=== PATIENT | female | born 1985 | race Caucasian/White ===

== ENCOUNTER 2018-10-22 18:13 | Emergency (ER) | payer OTHER ==
[~2018-10-22] VITALS: Ht 172.7 cm; Wt 70.0 kg
[2018-10-22 18:25] VITALS: BP 130/80
--- NOTE | 2018-10-22 18:39 | NUR ---
PT COMPLIANT WITH LAB DRAW. OFFICERS PRESENT.
[2018-11-14] MEDS ORDERED: RANI-467 PO (11:23)
[2018-11-14] MEDS ORDERED: RISP1TAB3 PO (11:23)
[2018-11-14] MEDS ORDERED: OMEP20TA62 PO (11:23)
[2018-11-14] MEDS ORDERED: LEVE100020 PO (11:23)
[2018-11-18] MEDS ORDERED: ACID1TAB7 PO (11:02)
[2018-11-18] MEDS ORDERED: SULF-169 PO (11:02)
== END 2018-10-22 18:48 | disposition home or self-care (01) ==
LOC: ED 18:23
DX: Z77.21 Contact with and (suspected) exposure to potentially hazardous body fluids (principal)
CPT/HCPCS: 36415; 86705; 86706; 86803; 87340; 87806; 99283; G0475

== ENCOUNTER 2018-11-14 11:05 | Inpatient (IN) | payer OTHER, MEDICAID ==
[~2018-11-14] VITALS: Ht 167.6 cm; Wt 98.6 kg
[2018-11-18 12:58] VITALS: BP 108/71
== END 2018-11-18 16:51 | DRG 871 ==
LOC: ED 12:57 → EDIP 12:58 → ED 13:35 → 3NE 14:04
PROVIDERS: ADMIT Internal Medicine; ATTEND Internal Medicine
PROC: 0T9B70Z Drainage of Bladder with Drainage Device, Via Natural or Artificial Opening (ICD-10-PCS; principal; 2018-11-14)
DX: A41.9 Sepsis, unspecified organism (principal); G93.41 Metabolic encephalopathy; N39.0 Urinary tract infection, site not specified; B96.20 Unspecified Escherichia coli [E. coli] as the cause of diseases classified elsewhere; B96.89 Other specified bacterial agents as the cause of diseases classified elsewhere; E66.9 Obesity, unspecified; E87.6 Hypokalemia; F29 Unspecified psychosis not due to a substance or known physiological condition; Z87.820 Personal history of traumatic brain injury; R73.9 Hyperglycemia, unspecified; Z68.35 Body mass index [BMI] 35.0-35.9, adult
CPT/HCPCS: 36415; 70450; 70551; 71045; 80053; 81001; 81025; 82140; 82607; 83605; 83735; 84443; 85025; 85610; 87077; 87086; 87186; 93005; 96374; 99285; G0378; J0696; J1630; J2060; J7030

== ENCOUNTER 2019-05-21 12:10 | Emergency (ER) | payer MEDICAID, OTHER ==
[~2019-05-21] VITALS: Ht 170.2 cm; Wt 93.0 kg
[~2019-05-21 12:10] MED LIST: ACID1TAB7 PO; LEVE100020 PO; OMEP20TA62 PO; RANI-467 PO; RISP1TAB3 PO; SULF-169 PO
[2019-05-21 12:20] VITALS: BP 126/71
--- NOTE | 2019-05-21 12:30 | NUR ---
SEE TRIAGE. PT PLACED ON ALL ROOM MONITORING. SEIZURE PADS IN PLACE. CALL LIGHT WITHIN REACH, WARM BLANKET PROVIDED.
--- NOTE | 2019-05-21 13:00 | NUR ---
PT PLACED ON BEDPAN, URINE WITH STRONG ODOR. UA ORDER PLACED, URINE SENT TO LAB. CALL LIGHT WITHIN REACH.
--- NOTE | 2019-05-21 13:14 | NUR ---
ERP IN TO SEE PT.
[2019-05-21 13:32] LABS: MICROSCOPIC INDICATED
[2019-05-21 13:33] LABS: CULTURE INDICATED? YES
[2019-05-21 14:04] LABS: BASOPHILS # (AUTO) 0.03 x10^3/uL (0-0.1); BASOPHILS % (AUTO) 0 % (0-1); EOSINOPHILS # (AUTO) 0.06 x10^3/uL (0-0.4); EOSINOPHILS % (AUTO) 1 % (1-7); LYMPHOCYTES # (AUTO) 2.21 x10^3/uL (1-3.4); LYMPHOCYTES % (AUTO) 33 % (22-44); MD NO; MEAN CORPUSCULAR HEMOGLOBIN 30.1 pg (27.0-34.8); MEAN CORPUSCULAR HGB CONC 33.6 g/dL (32.4-35.8); MEAN CORPUSCULAR VOLUME 89.6 fL (80-100); MEAN PLATELET VOLUME 8.2 fL (7.4-10.4); MONOCYTES # (AUTO) 0.43 x10^3/uL (0.2-0.8); MONOCYTES % (AUTO) 6 % (2-9); NEUTROPHILS # (AUTO) 4.04 x10^3/uL (1.8-6.8); NEUTROPHILS % (AUTO) 60 % (42-75); PLATELET COUNT 250 x10^3/uL (130-400); RED BLOOD COUNT 4.85 x10^6/uL (3.82-5.3); RED CELL DISTRIBUTION WIDTH 13.3 % (9.6-15.2)
[2019-05-21 14:09] LABS: ALANINE AMINOTRANSFERASE 28 U/L (12-78); ALBUMIN 3.7 g/dL (3.4-5.0); ANION GAP 5 mmol/L (5-15); CALCIUM 8.6 mg/dL (8.5-10.1); CHLORIDE 108 mmol/L (98-107); CREATININE 0.88 mg/dL (0.55-1.02)
[2019-05-21 14:13] LABS: ALKALINE PHOSPHATASE 92 U/L (45-117); BILIRUBIN,TOTAL 0.2 mg/dL (0.2-1.0); TOTAL PROTEIN 7.5 g/dL (6.4-8.2)
[2019-05-21 14:20] LABS: AMPHETAMINE SCREEN, URINE Positive (Negative); BARBITURATE SCREEN, URINE Negative (Negative); BENZODIAZEPINE SCREEN, URINE Negative (Negative); CANNABINOID SCREEN, URINE Negative (Negative); COCAINE SCREEN, URINE Negative (Negative); METHADONE SCREEN, URINE Negative (Negative); OPIATE SCREEN, URINE Negative (Negative)
--- NOTE | 2019-05-21 14:39 | NUR ---
PT BACK FROM CT.
--- NOTE | 2019-05-21 15:02 | NUR ---
PT SLEEPING, NAD. VSS/UPDATED IN COMPUTER. ALL RESULTS BACK, PT FOR RECHECK
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
== END 2019-05-21 16:48 | disposition home or self-care (01) ==
LOC: ED 13:00
DX: G40.909 Epilepsy, unspecified, not intractable, without status epilepticus (principal); R51 Headache; R41.0 Disorientation, unspecified; R94.31 Abnormal electrocardiogram [ECG] [EKG]
CPT/HCPCS: 36415; 70450; 80053; 80307; 81001; 84703; 85025; 87077; 87086; 87186; 93005; 99285

== ENCOUNTER 2019-09-04 19:08 | Emergency (ER) | payer MEDICAID ==
[~2019-09-04] VITALS: Ht 170.2 cm; Wt 105.8 kg
[2019-09-04 19:11] VITALS: BP 112/71
--- NOTE | 2019-09-04 19:11 | NUR ---
PT WANDERING AROUND TIRAGE ROOM, RIDIRECTED TO PLEASE REMAIN SEATED, NOT ANSWERING QUESTIONS, STATES THAT SHE IS THIRSTY AND CAME HERE FOR WATER, WALKS BACK OUT TO LOBBY.
--- NOTE | 2019-09-04 20:39 | NUR ---
[id number]
--- NOTE | 2019-09-04 21:16 | NUR ---
NILX2
--- NOTE | 2019-09-04 21:36 | NUR ---
NILX3 LWBS
== END 2019-09-04 21:39 | disposition left against medical advice (07) ==
LOC: ED 21:33
DX: R42 Dizziness and giddiness (principal); Z53.21 Procedure and treatment not carried out due to patient leaving prior to being seen by health care provider

== ENCOUNTER 2019-11-23 11:01 | Emergency (ER) | payer MEDICAID ==
[~2019-11-23] VITALS: Ht 167.6 cm; Wt 85.0 kg
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
[2019-11-23] MEDS ORDERED: LEVE100020 PO (11:27)
--- NOTE | 2019-11-23 12:06 | NUR ---
REFUSING FSBS AND LAB DRAW.
[2019-11-23] MEDS ORDERED: LORazepam 1MG TABLET PO ONE (12:30)
[2019-11-23] MEDS ORDERED: HALOPERIDOL 5 MG/ML IM PRN (12:30)
[2019-11-23] MEDS ORDERED: DIPHENHYDRAMINE 50 MG/ML, 1ML IM ONE (12:30)
[2019-11-23] MEDS ORDERED: LORazepam 1MG TABLET ONE (13:01)
[2019-11-23] MEDS ORDERED: DIPHENHYDRAMINE 50 MG/ML, 1ML ONE (13:01)
--- NOTE | 2019-11-23 13:06 | NUR ---
PT SLEEPIN IN NAD EVEN AND UNLABORED RESPIRATIONS. VSS. FALL PRECAUTIONS IN PLACE.
[2019-11-23 13:07] VITALS: BP 118/78
--- NOTE | 2019-11-23 13:15 | NUR ---
PT AWAKE, CONTINUES TO REFUSE LABS AND FS AT THIS TIME, WHEN ASKED HOW SHE IS DOING, HER RESPONSE IS "IM NOT DOING TOO BAD, I JUST WANTS TO GO HOME".
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
== END 2019-11-23 14:03 | disposition home or self-care (01) ==
LOC: ED 12:48
DX: F15.122 Other stimulant abuse with intoxication with perceptual disturbance (principal); F15.150 Other stimulant abuse with stimulant-induced psychotic disorder with delusions; F17.200 Nicotine dependence, unspecified, uncomplicated
CPT/HCPCS: 99283